=== PATIENT | female | born 1975 | race Caucasian/White ===

== ENCOUNTER → 2017-06-16 | Outpatient (CLI) | payer OTHER, BC ==
[2016-08-18 10:03] VITALS: BP 118/58
--- NOTE | 2017-06-20 12:10 | MRI ---
MRI OF THE LUMBAR SPINE WITHOUT IV CONTRAST CLINICAL INDICATION: Lumbar radiculopathy TECHNIQUE: Pre-contrast sagittal T1-, T2-, and T2-w fat-saturated images, and axial T1- and T2-w imag es of the lumbar spine. COMPARISON: None. FINDINGS: For purposes of this dictation, it is assumed that there are 5 [id number], lumbar-type vertebrae , and the most caudal fully segmented lumbar vertebra is labeled L5. The lumbar spine demonstrates normal alignment. Vertebral bodies are normal in height. There is a nor mal marrow signal pattern. Intervertebral discs are normal in height and signal intensity. The conus medullaris terminates at a normal level and the nerve roots of the cauda equina appear normal. The in cluded paraspinal soft tissues and retroperitoneal structures are grossly normal. Evaluation of the individual levels demonstrates: T10-T11: Normal. T11-T12: Normal. T12-L1: Normal. L1-2: Normal L2-3: Circumferential disc bulge and mild facet hypertrophy resulting in mild central stenosis and mi ld bilateral foraminal stenosis. L3-4: Circumferential disc bulge with mild central stenosis, mild right, moderate left neural foramin al stenosis. L4-5: Mild disc bulge without central stenosis. L5-S1: Normal IMPRESSION: 1. Mild multilevel degenerative disc disease worst at L2-L3 and L3-L4 as above. Reported By:
--- NOTE | 2017-06-20 12:23 | MRI ---
MRI OF THE CERVICAL SPINE WITHOUT IV CONTRAST CLINICAL INDICATION: Neck pain with right elbow burning TECHNIQUE: Pre-contrast sagittal T1-, T2-, and T2-w fat-saturated images, and axial T1- and T2-w imag es of the cervical spine. COMPARISON: None. FINDINGS: The cervical spine demonstrates normal alignment. Vertebral bodies are normal in height. There is a n ormal marrow signal pattern. Degenerative disc disease worst at C6-C7. There is no abnormality of the cranio-cervical junction. The included paraspinal soft tissues are grossly normal. Evaluation of the individual levels demonstrates: C1-2: Normal C2-3: Normal C3-4: Normal C4-5: Disc osteophyte complex and uncovertebral hypertrophy resulting in mild central stenosis and mo derate left-sided neural foraminal stenosis. C5-6: Normal C6-7: Normal C7-T1: Normal IMPRESSION: 1. Mild degenerative disc disease worst at C4-C5. See above for details. Reported By:
== END | disposition home or self-care (01) | DRG 74 ==
LOC: RAD 08:43
PROVIDERS: ATTEND Psychiatry & Neurology Neurology
DX: M54.12 Radiculopathy, cervical region (principal); M54.16 Radiculopathy, lumbar region; M51.36 Other intervertebral disc degeneration, lumbar region; M50.321 Other cervical disc degeneration at C4-C5 level
CPT/HCPCS: 72141; 72148

== ENCOUNTER → 2017-06-21 | Outpatient (CLI) | payer OTHER, BC ==
[2016-08-18 10:03] VITALS: BP 118/58
== END ==
LOC: RT 10:25
PROVIDERS: ATTEND Psychiatry & Neurology Neurology
DX: G56.03 Carpal tunnel syndrome, bilateral upper limbs (principal)
CPT/HCPCS: 95911